=== PATIENT | female | born 1980 ===

== ENCOUNTER 2022-05-21 00:50 | Emergency (ER) | payer MEDICAID ==
[2022-05-21 01:20] LABS: BASOPHIL 1.1 % (0-2); EOSINOPHIL 2.3 % (0-5); HCT 37.3 % (37.0-47.0); HGB 12.4 g/dl (12.5-16.0); MCH 31.2 pg (25.0-31.0); MCHC 33.2 g/dL (32.0-36.0); MPV 8.7 fL (6.0-9.5); NEUTROPHIL 61.2 % (41-80); NRBC 0; PLT 256 K/uL (150-400); RBC 3.97 M/uL (4.20-5.40); RDW 11.9 % (11.5-14.0); WBC 5.7 K/uL (4.0-10.5)
[2022-05-21 01:32] LABS: ALBUMIN 3.7 g/dL (3.4-5.0); BILIRUBIN - TOTAL 0.1 mg/dL (0.2-1.0); BUN/CREAT RATIO (CALC) 10.8 RATIO; CREATININE 0.65 mg/dL (0.51-0.95); GLOBULIN (CALCULATION) 3.4 g/dL; POTASSIUM 3.1 mmol/L (3.5-5.1); TOTAL PROTEIN 7.1 g/dL (6.4-8.2)
[2022-05-21 05:32] LABS: AMPHETAMINES NEGATIVE (NEGATIVE); BARBITURATES NEGATIVE (NEGATIVE); ECSTASY (MDMA) NEGATIVE (NEGATIVE); MARIJUANA (THC) POSITIVE (NEGATIVE); METHADONE NEGATIVE (NEGATIVE); OPIATES NEGATIVE (NEGATIVE); OXYCODONE NEGATIVE (NEGATIVE)
== END 2022-05-21 05:49 | disposition home or self-care (01) ==
LOC: FER 00:50
PROVIDERS: Emergency Medicine
DX: S09.90XA Unspecified injury of head, initial encounter (principal); F10.129 Alcohol abuse with intoxication, unspecified; Y90.7 Blood alcohol level of 200-239 mg/100 ml; Z23 Encounter for immunization; W19.XXXA Unspecified fall, initial encounter; Y92.59 Other trade areas as the place of occurrence of the external cause
CPT/HCPCS: 36415; 70450; 72125; 80053; 80305; 85025; 90471; 90715; G0480; J7030